=== PATIENT | male | born 1980 | race African-American/Black ===

== ENCOUNTER 2019-11-10 01:58 | Emergency (ER) | payer OTHER ==
[~2019-11-10] VITALS: Ht 188 cm; Wt 106.6 kg
[2019-11-10] MEDS ORDERED: NORCO 5-325 TA1 EAC1 PO (03:13)
[2019-11-10] MEDS ORDERED: IBUPROFEN 600600 M1 PO (03:13)
[2019-11-10] MEDS ORDERED: SENNA-DOCUSATE1 EAC1 PO (03:13)
[2019-11-10 04:00] VITALS: BP 174/109
== END 2019-11-10 04:02 | disposition home or self-care (01) ==
LOC: ER 01:58
DX: S62.390A Other fracture of second metacarpal bone, right hand, initial encounter for closed fracture (principal); F17.210 Nicotine dependence, cigarettes, uncomplicated; Z88.8 Allergy status to other drugs, medicaments and biological substances; X58.XXXA Exposure to other specified factors, initial encounter; Y93.89 Activity, other specified; Y92.89 Other specified places as the place of occurrence of the external cause; Y99.8 Other external cause status